=== PATIENT | male | born 1935 | race Caucasian/White ===

== ENCOUNTER → 2016-10-06 | Outpatient (CLI) | payer MEDICARE, OTHER ==
[~2016-10-06] MED LIST: ALLO100T30 PO; CHOL400T12 PO; CINA30TA PO; EZET10TA3 PO; POTA10TA11 PO; PRAV80TA2 PO
== END | disposition home or self-care (01) ==
LOC: CFH 12:22
PROVIDERS: ATTEND Surgery Vascular Surgery
DX: J90 Pleural effusion, not elsewhere classified (principal); J98.11 Atelectasis; J43.2 Centrilobular emphysema
CPT/HCPCS: 71250